=== PATIENT | male | born 1965 | race African-American/Black ===

== ENCOUNTER 2019-02-11 12:53 | Inpatient (IN) | payer SELFPAY ==
--- NOTE | 2019-02-11 13:37 | ER Document Report ---
ED Medical Screen (RME) - General Chief Complaint: Doesn't Feel Right Stated Complaint: ALTERED MENTAL STATE Time Seen by Provider: 02/11/19 13:31 Mode of Arrival: Wheelchair Information source: Patient Notes: Patient is a 53-year-old male presented to the emergency department with chief complaint of altered mental status and difficulty putting speech together. Patient reports that at approximately 1215 this afternoon he was typing on a keyboard at home when he felt like he could not put his thoughts together. He states he then went to the local [facility] with a friend of his where his friend reports he was acting altered and was unable to make full sentences. At the time of arrival to the hospital all symptoms have resolved. Patient has full and equal jet engine mechanic strength bilaterally. He is speaking in full and complete sentences and is alert and oriented x4. Due to patient's transient symptoms I will send patient for CT of his head to evaluate for stroke. Charge nurse was made aware and patient was upgraded to an PRINCESS 2. I have greeted and performed a rapid initial assessment of this patient. A comprehensive ED assessment and evaluation of the patient, analysis of test results and completion of the medical decision making process will be conducted by additional ED providers. I have specifically instructed the patient or family members with the patient to immediately return to any nursing staff should anything change in the patient's condition or with their chief complaint. This medical record was dictated with voice recognizing software. There may be grammatical, syntax errors that are unintended. - Related Data Allergies/Adverse Reactions: codeine Allergy (Verified 02/11/19 12:59) naproxen Allergy (Verified 02/11/19 12:59) Penicillins Allergy (Verified 02/11/19 12:59) Sulfa (Sulfonamide Antibiotics) Allergy (Verified 02/11/19 12:59) Physical Exam - Vital signs Vitals: Temp Pulse Resp BP Pulse Ox 98.1 F 80 16 147/88 H 97 02/11/19 13:09 02/11/19 13:09 02/11/19 13:02/11/19 13:09 02/11/19 13:09 Course - Vital Signs Vital signs: Temp Pulse Resp BP Pulse Ox 98.1 F 80 16 147/88 H 97 02/11/19 13:09 02/11/19 13:09 02/11/19 13:09 02/11/19 13:09 02/11/19 13:09
--- NOTE | 2019-02-11 13:58 | RADIOLOGY REPORT (SQ) ---
EXAM DESCRIPTION: CT HEAD WITHOUT COMPLETED DATE/TIME: 02/11/2019 1:45 pm REASON FOR STUDY: stroke COMPARISON: None. TECHNIQUE: Axial images acquired through the brain without intravenous contrast. Images reviewed wi th bone, brain and subdural windows. Additional sagittal and coronal reconstructions were generated. Images stored on PACS. All CT scanners at this facility use dose modulation, iterative reconstruction, and/or weight based d osing when appropriate to reduce radiation dose to as low as reasonably achievable (ALARA). [facility]: Dose Right [facility]: CareDose [facility]: Dose Right [facility]: Teradose 4D [facility]: Smart [place] RADIATION DOSE: CT Rad equipment meets quality standard of care and radiation dose reduction techniq ues were employed. CTDIvol: 53.2 mGy. DLP: 1044 mGy-cm. mGy. LIMITATIONS: None. FINDINGS: VENTRICLES: Normal size and contour. CEREBRUM: No masses. No hemorrhage. No midline shift. No evidence for acute infarction. Lacunar in farction of the right anterior limb of the internal capsule and adjacent alaniz radiata, age indeterm inate although likely chronic (series 2, image 21). CEREBELLUM: No masses. No hemorrhage. No alteration of density. No evidence for acute infarction. EXTRAAXIAL SPACES: No fluid collections. No masses. ORBITS AND GLOBE: No intra- or extraconal masses. Normal contour of globe without masses. CALVARIUM: No fracture. PARANASAL SINUSES: No fluid or mucosal thickening. SOFT TISSUES: No mass or hematoma. OTHER: No other significant finding. IMPRESSION: Lacunar infarction of the right anterior limb of the internal capsule and adjacent coron a radiata, age indeterminate although likely chronic (series 2, image 21). No CT evidence of acute s troke or hemorrhage. Consider MRI to evaluate for acute diffusion restricting infarction. EVIDENCE OF ACUTE STROKE: NO. COMMENT: Quality ID # [id number]: Final reports with documentation of one or more dose reduction techniques (e.g., Automated exposure control, adjustment of the mA and/or kV according to patient size, use of iterative reconstruction technique) TECHNICAL DOCUMENTATION: JOB ID: [id number] [employer]- All Rights Reserved Reading location - IP/workstation name: [email or web address]
[2019-02-11 14:14] LABS: ABSOLUTE EOSINOPHILS # (AUTO) 0.1 10^3/uL (0.0-0.6); ABSOLUTE LYMPHOCYTES (AUTO) 1.9 10^3/uL (0.5-4.7); ABSOLUTE MONOCYTES (AUTO) 0.4 10^3/uL (0.1-1.4); ABSOLUTE NEUT (AUTO) 1.8 10^3/uL (1.7-8.2); BASOPHILS % (AUTO) 0.7 % (0-2); EOSINOPHILS % (AUTO) 2.2 % (0-6); HEMATOCRIT 41.3 % (37.9-51.0); HEMOGLOBIN 14.1 g/dL (13.5-17.0); LYMPHOCYTES % (AUTO) 44.6 % (13-45); MEAN CORPUSCULAR HEMOGLOBIN 29.6 pg (27.0-33.4); MEAN CORPUSCULAR HGB CONC 34.1 g/dL (32.0-36.0); MEAN CORPUSCULAR VOLUME 87 fl (80-97); MONOCYTES % (AUTO) 9.7 % (3-13); PLATELET COUNT 207 10^3/uL (150-450); RED BLOOD COUNT 4.76 10^6/uL (4.35-5.55); SEGMENTED NEUTROPHILS % (AUTO) 42.8 % (42-78); TOTAL CELLS COUNTED % (AUTO) 100 %; WHITE BLOOD COUNT 4.3 10^3/uL (4.0-10.5)
--- NOTE | 2019-02-11 14:15 | RADIOLOGY REPORT (SQ) ---
EXAM DESCRIPTION: CHEST SINGLE VIEW COMPLETED DATE/TIME: 02/11/2019 1:43 pm REASON FOR STUDY: stroke work-up COMPARISON: None. EXAM PARAMETERS: NUMBER OF VIEWS: One view. TECHNIQUE: Single frontal radiographic view of the chest acquired. RADIATION DOSE: NA LIMITATIONS: None. FINDINGS: LUNGS AND PLEURA: No opacities, masses or pneumothorax. No pleural effusion. MEDIASTINUM AND HILAR STRUCTURES: No masses. Contour normal. HEART AND VASCULAR STRUCTURES: Heart normal in size. Normal vasculature. BONES: No acute findings. HARDWARE: None in the chest. OTHER: No other significant finding. IMPRESSION: NO ACUTE RADIOGRAPHIC FINDING IN THE CHEST. TECHNICAL DOCUMENTATION: JOB ID: [id number] [employer]- All Rights Reserved Reading location - IP/workstation name: [email or web address]
[2019-02-11 14:23] LABS: INTERNATIONAL RATION (INR) 0.93; PARTIAL THROMBOPLASTIN TIME 30.2 SEC (23.5-35.8); PROTHROMBIN TIME 12.4 SEC (11.4-15.4)
[2019-02-11] MEDS ORDERED: LORAZEPAM INJ 2 MG/1 ML VIAL IV ONE (15:01)
[2019-02-11] MEDS ORDERED: LORAZEPAM 1 MG TABLET PO ONE (15:01)
[2019-02-11 15:39] LABS: ALKALINE PHOSPHATASE 100 U/L (38-126); ANION GAP 6 (5-19); ASPARTATE AMINO TRANSFERASE 26 U/L (17-59); BILIRUBIN,DIRECT 0.3 mg/dL (0.0-0.4); BILIRUBIN,TOTAL 0.4 mg/dL (0.2-1.3); BLOOD UREA NITROGEN 22 mg/dL (7-20); CALCIUM 9.3 mg/dL (8.4-10.2); CARBON DIOXIDE 34 mmol/L (22-30); CHLORIDE 100 mmol/L (98-107); CREATINE KINASE 102 U/L (55-170); GLUCOSE 93 mg/dL (75-110); POTASSIUM 3.5 mmol/L (3.6-5.0); TOTAL PROTEIN 7.4 g/dL (6.3-8.2)
[2019-02-11 15:51] LABS: CREATINE KINASE MB 0.28 ng/mL (<4.55)
[2019-02-11 16:04] LABS: TROPONIN I < 0.012 ng/mL
--- NOTE | 2019-02-11 16:16 | ER Document Report ---
ED Neuro Symptoms/Deficit - General Chief Complaint: Doesn't Feel Right Stated Complaint: ALTERED MENTAL STATE Time Seen by Provider: 02/11/19 13:31 Primary Care Provider: OMAYRA FLEMING FNP [Primary Care Provider] - Follow up as needed Mode of Arrival: Wheelchair Notes: Patient is here because he is having difficulty speaking. About noon today, patient was at the computer and began to have difficulty writing words correctly. Letter seem to be mixed and he was not able to form words like normal. The symptoms worsened to the point that patient was unable to speak and could not be understood and they came to the emergency department. At the time of their arrival here, patient's symptoms had resolved completely and he was no longer having any of the problems that he had that brought him here. Has not had any problems with his vision. Denies any headache. No recent illness. No fevers. Patient ate a burger and frie just before l noon. Also, patient was stung by a wasp on his neck around noontime. Patient has a history of hypertension, high cholesterol. Patient is HIV positive. - Related Data Allergies/Adverse Reactions: codeine Allergy (Verified 02/11/19 12:59) naproxen Allergy (Verified 02/11/19 12:59) Penicillins Allergy (Verified 02/11/19 12:59) Sulfa (Sulfonamide Antibiotics) Allergy (Verified 02/11/19 12:59) Past Medical History - General Information source: Patient - Social History Smoking Status: Former Smoker Drug Abuse: Marijuana Family History: Reviewed & Not Pertinent Patient has suicidal ideation: No Patient has homicidal ideation: No - Past Medical History Cardiac Medical History: Reports: Hx Hypercholesterolemia, Hx Hypertension Neurological Medical History: Denies: Hx Cerebrovascular Accident Endocrine Medical History: Denies: Hx Diabetes Mellitus Type 1, Hx Diabetes Mellitus Type 2 Infectious Medical History: Reports: Hx HIV Review of Systems - Review of Systems Notes: REVIEW OF SYSTEMS: CONSTITUTIONAL : Denies fever. EENT: Denies eye, ear, nose or mouth or throat pain or other symptoms. CARDIOVASCULAR: Denies chest pain. RESPIRATORY: Denies cough, chest congestion, or shortness of breath. GASTROINTESTINAL: Denies abdominal pain or nausea, vomiting, or diarrhea. GENITOURINARY: Denies difficulty or painful urinating, urinary frequency, blood in urine. MUSCULOSKELETAL: Denies back or neck pain. Denies joint pain or swelling. SKIN: Denies rash or skin lesions. NEUROLOGICAL: See HPI. Has had some headache. Denies sensory loss or motor deficits. ALL OTHER SYSTEMS REVIEWED AND NEGATIVE. Physical Exam - Vital signs Vitals: Temp Pulse Resp BP Pulse Ox 98.1 F 80 16 147/88 H 97 02/11/19 13:09 02/11/19 13:09 02/11/19 13:09 02/11/19 13:09 02/11/19 13:09 Interpretation: Normal Notes: PHYSICAL EXAMINATION: GENERAL: Well-appearing, in no acute distress. Vital signs are all essentially normal. HEAD: Atraumatic, normocephalic. EYES: Pupils equal round and reactive to light, extraocular movements intact. ENT: oropharynx clear without exudates. Moist mucous membranes. NECK: Normal range of motion, supple. I do not hear any bruits over either carotid artery. LUNGS: Breath sounds clear and equal bilaterally. HEART: Regular rate and rhythm without murmurs. ABDOMEN: Soft, nontender. No guarding or rebound. No masses. BACK: No tenderness throughout entire back. EXTREMITIES: Normal range of motion without pain. NEUROLOGICAL: Normal speech, normal gait. Normal sensory, motor, and reflex exams. Awake, alert, and oriented x3. Cranial nerves normal. PSYCH: Normal mood, normal affect. SKIN: Warm, dry, no rashes. Course - Re-evaluation Re-evalutation: 02/11/19 17:17 Patient symptoms all resolved before he got to the emergency department. He has no symptoms at all at this time and feels back to normal. By this time, of getting the MRI performed, the patient is outside of any treatment window, even if indicated. However, because the patient's symptoms have completely resolved and not recurred, I do not think he meets criteria for administration of thrombolytics (TPA). Based on patient's CT and MRI results, he is being admitted to the [facility]. Aspirin therapy is started. - Vital Signs Vital signs: Temp Pulse Resp BP Pulse Ox 98.1 F 80 16 147/88 H 97 02/11/19 13:09 02/11/19 13:09 02/11/19 13:09 02/11/19 13:09 02/11/19 13:09 - Laboratory Result Diagrams: 02/11/19 14:05 02/11/19 15:00 Laboratory results interpreted by me: 02/11/19 02/11/19 14:05 15:00 RDW 16.0 H Potassium 3.5 L Carbon Dioxide 34 H BUN 22 H Creatinine 1.91 H Est GFR ( Amer) 45 L Est GFR (Non-Af Amer) 37 L - Diagnostic Test Radiology reviewed: Image reviewed, Reports reviewed - Patient's CT scan of the brain showed what looks like an old lacunar infarct and an MRI was recommended. The MRI shows couple of areas of small acute infarcts on the left side of the patient's brain, one in the frontal lobe and one in the occipital lobe. - EKG Interpretation by Pa EKG shows normal: Sinus rhythm Rate: Normal Rhythm: NSR Additional EKG results interpreted by me: 02/11/19 17:21 EKG shows no acute changes. Nonspecific ST changes present. Discharge - Discharge Clinical Impression: Stroke Condition: Stable Disposition: ADMITTED INPATIENT Admitting Provider: Yesy (Hospitalist) Unit Admitted: IMCU Referrals: OMAYRA FLEMING FNP [Primary Care Provider] - Follow up as needed
--- NOTE | 2019-02-11 16:54 | RADIOLOGY REPORT (SQ) ---
EXAM DESCRIPTION: MRI HEAD WITHOUT COMPLETED DATE/TIME: 02/11/2019 4:24 pm REASON FOR STUDY: Difficulty with speech, CT shows lacunar infarct COMPARISON: CT brain done earlier the same day. TECHNIQUE: Multiplanar imaging includes non-contrasted T1, T2, FLAIR, and Diffusion with ADC map seq uences. Images stored on PACS. LIMITATIONS: None. FINDINGS: ANATOMY: No anomalies. Normal vascular flow voids. Pituitary fossa normal. CSF SPACES: Normal in size and contour. No hemorrhage. CEREBRUM: A few high-signal intensity lesions scattered throughout the white matter on FLAIR imaging with distribution suggesting chronic micro-vascular ischemic change. Sulci and gyri normal in size a nd contour. No evidence of hemorrhage, mass or extraaxial fluid collection. POSTERIOR FOSSA: No signal alteration. No hemorrhage. No edema, masses or mass effect. Internal veronica tory canals, cerebello-pontine angles, mastoids normal. DIFFUSION: There acute infarcts in the left occipital lobe and high left posterior frontal lobe. ORBITS: No masses. Globes normal. PARANASAL SINUSES: No fluid levels. Mucosa normal. OTHER: No other significant finding. IMPRESSION: 1. Acute small infarct in the high posterior left frontal lobe. 2. Acute small infarcts in the left occipital lobe. 3. Mild small vessel ischemic changes. EVIDENCE OF ACUTE STROKE: YES. COMMENT: This report was called to BRIE NGUYEN MD at16:40 on 02/11/2019. TECHNICAL DOCUMENTATION: JOB ID: [id number] [employer]- All Rights Reserved Reading location - IP/workstation name: [email or web address]
[2019-02-11] MEDS ORDERED: ASPIRIN 81 MG TABLET, CHEWABLE PO ONE (17:09)
[2019-02-11] MEDS ORDERED: NORMAL SALINE 1000 ML 1,000 ML IV PRN (17:37)
[2019-02-11] MEDS ORDERED: HYDROCODONE/ACETAMINOPHEN 5-325 MG TABLET PO PRN (17:37)
[2019-02-11] MEDS ORDERED: DEXTROSE 50%-WATER 25 GM/50 ML DISP.SYRIN IV PRN ×2 (17:37)
[2019-02-11] MEDS ORDERED: GLUCAGON,HUMAN RECOMB 1 MG INJ SUBCUT PRN (17:37)
[2019-02-11] MEDS ORDERED: ONDANSETRON HCL INJ/PF 4 MG/2 ML SDV IV PRN (17:37)
[2019-02-11] MEDS ORDERED: DEXTROSE 40% GEL 15 GM TUBE PO PRN ×2 (17:37)
--- NOTE | 2019-02-11 17:51 | Progress Note Acknowledgement ---
Progress Note Acknowledgement Progess Note Acknowledgement: I, the undersigned member of the medical staff with appropriate privileges and with supervisory authority over [ Clarence Kendall ], a dependent practice allied health professional, acknowledge that I have reviewed the progress notes entered on this patient, and in my professional judgment believe that the assessment made and/or any care evidenced was appropriate
[2019-02-11] MEDS ORDERED: NORMAL SALINE 1000 ML 1,000 ML with POTASSIUM CHLORIDE 20 MEQ IV PRN ×2 (18:14)
--- NOTE | 2019-02-11 18:18 | PDOC H&P ---
History of Present Illness Admission Date/PCP: 02/11/19 17:29 YARITZA CHAVEZ Patient complains of: Stroke symptoms History of Present Illness: JACINTO STALLINGS is a 53 year old male with a known history of HIV who presents after becoming weak at home around 1230 today having trouble finding words apparently went to [facility] and then [place] at that point and had another episode of confusion trouble finding words. Patient presented to the ER was found to h ave a chronic as well as acute stroke on CT. Patient was outside the window for TPA at that time. Patient had no other treatment prior to arrival no true aggravating factors. Past Medical History Cardiac Medical History: Reports: Hyperlipidema, Hypertension Endocrine Medical History: Denies: Diabetes Mellitus Type 1, Diabetes Mellitus Type 2 Infectious Medical History: Reports: HIV Infectious History Note: HIV positive Past Surgical History Past Surgical History: Reports: None Social History Information Source: Patient Lives with: Friend Smoking Status: Former Smoker Frequency of Alcohol Use: None Hx Recreational Drug Use: No Drugs: None Hx Prescription Drug Abuse: No - Advance Directive Resuscitation Status: Full Code Family History Family History: None Parental Family History Reviewed: Yes Children Family History Reviewed: Yes Sibling(s) Family History Reviewed.: Yes Medication/Allergy Allergies/Adverse Reactions: codeine Allergy (Verified 02/11/19 12:59) naproxen Allergy (Verified 02/11/19 12:59) Penicillins Allergy (Verified 02/11/19 12:59) Sulfa (Sulfonamide Antibiotics) Allergy (Verified 02/11/19 12:59) Review of Systems Constitutional: ABSENT: chills, fever(s), headache(s), weight gain, weight loss Eyes: ABSENT: visual disturbances Ears: ABSENT: hearing changes Cardiovascular: ABSENT: chest pain, dyspnea on exertion, edema, orthropnea, palpitations Respiratory: ABSENT: cough, hemoptysis Gastrointestinal: ABSENT: abdominal pain, constipation, diarrhea, hematemesis, hematochezia, nausea, vomiting Genitourinary: ABSENT: dysuria, hematuria Musculoskeletal: ABSENT: joint swelling Integumentary: ABSENT: rash, wounds Neurological: PRESENT: abnormal gait, confusion, dizziness, focal weakness. ABSENT: syncope Psychiatric: ABSENT: anxiety, depression, homidical ideation, suicidal ideation Endocrine: ABSENT: cold intolerance, heat intolerance, polydipsia, polyuria Hematologic/Lymphatic: ABSENT: easy bleeding, easy bruising Physical Exam Vital Signs: Temp Pulse Resp BP Pulse Ox 98.1 F 80 16 147/88 H 97 02/11/19 13:09 02/11/19 13:09 02/11/19 13:09 02/11/19 13:09 02/11/19 13:09 Intake & Output 02/10/19 02/11/19 02/12/19 06:59 06:59 06:59 Weight 96.2 kg General appearance: PRESENT: no acute distress, well-developed, well-nourished Head exam: PRESENT: atraumatic, normocephalic Eye exam: PRESENT: conjunctiva pink, EOMI, PERRLA. ABSENT: scleral icterus Ear exam: PRESENT: normal external ear exam Mouth exam: PRESENT: moist, tongue midline Teeth exam: PRESENT: poor dentation Neck exam: ABSENT: carotid bruit, JVD, lymphadenopathy, thyromegaly Respiratory exam: PRESENT: clear to auscultation lainey. ABSENT: rales, rhonchi, wheezes Cardiovascular exam: PRESENT: RRR. ABSENT: diastolic murmur, rubs, systolic murmur Pulses: PRESENT: normal dorsalis pedis pul Vascular exam: PRESENT: normal capillary refill GI/Abdominal exam: PRESENT: normal bowel sounds, soft. ABSENT: distended, guarding, mass, organolmegaly, rebound, tenderness Rectal exam: PRESENT: deferred Extremities exam: PRESENT: full ROM. ABSENT: calf tenderness, clubbing, pedal edema Neurological exam: PRESENT: alert, awake, oriented to person, oriented to place, oriented to time, oriented to situation, CN II-XII grossly intact, aphasic. ABSENT: motor sensory deficit Psychiatric exam: PRESENT: appropriate affect, normal mood. ABSENT: homicidal ideation, suicidal ideation Skin exam: PRESENT: dry, intact, warm. ABSENT: cyanosis, rash Results Laboratory Results: 02/11/19 14:05 02/11/19 15:00 02/11/19 02/11/19 02/11/19 14:05 14:05 15:00 WBC 4.3 RBC 4.76 Hgb 14.1 Hct 41.3 MCV 87 MCH 29.6 MCHC 34.1 RDW 16.0 H Plt Count 207 Seg Neutrophils % 42.8 Lymphocytes % 44.6 Monocytes % 9.7 Eosinophils % 2.2 Basophils % 0.7 Absolute Neutrophils 1.8 Absolute Lymphocytes 1.9 Absolute Monocytes 0.4 Absolute Eosinophils 0.1 Absolute Basophils 0.0 Sodium Cancelled 140.0 Potassium Cancelled 3.5 L Chloride Cancelled 100 Carbon Dioxide Cancelled 34 H Anion Gap Cancelled 6 BUN Cancelled 22 H Creatinine Cancelled 1.91 H Est GFR ( Amer) Cancelled 45 L Est GFR (Non-Af Amer) Cancelled 37 L Glucose Cancelled 93 Calcium Cancelled 9.3 Total Bilirubin Cancelled 0.4 AST Cancelled 26 Alkaline Phosphatase Cancelled 100 Total Protein Cancelled 7.4 Albumin Cancelled 4.0 02/11/19 02/11/19 02/11/19 14:05 14:05 15:00 Creatine Kinase Cancelled 102 CK-MB (CK-2) Cancelled Troponin I Cancelled 02/11/19 15:00 Creatine Kinase CK-MB (CK-2) 0.28 Troponin I < 0.012 Impressions: Head CT 02/11/19 13:37 IMPRESSION: Lacunar infarction of the right anterior limb of the internal capsule and adjacent alaniz radiata, age indeterminate although likely chronic (series 2, image 21). No CT evidence of acute stroke or hemorrhage. Consider MRI to evaluate for acute diffusion restricting infarction. EVIDENCE OF ACUTE STROKE: NO. Chest X-Ray 02/11/19 13:38 IMPRESSION: NO ACUTE RADIOGRAPHIC FINDING IN THE CHEST. Head MRI 02/11/19 14:26 IMPRESSION: 1. Acute small infarct in the high posterior left frontal lobe. 2. Acute small infarcts in the left occipital lobe. 3. Mild small vessel ischemic changes. EVIDENCE OF ACUTE STROKE: YES. Assessment and Plan - Diagnosis (1) Stroke Is this a current diagnosis for this admission?: Yes Plan: February 11, 2019-admit to [facility]. Stroke protocol. Echocardiogram, bilateral carotid Dopplers, patient had MRI already. Patient be started on aspirin 325 mg continue daily. Atorvastatin 80 mg p.o. daily. Lipid panel. Stroke nurse to consult. Occupational therapy, physical therapy, speech therapy for swallow evaluation. After swallow evaluation will start patient on the diet at that time. Patient did have trouble swallowing aspirin with sips of water in my presence in the ER. He is also got some expressive aphasia at this time (2) HIV (human immunodeficiency virus infection) Is this a current diagnosis for this admission?: Yes Plan: 02/11/2019-patient will continue home antiviral medications and will be allowed to take his home doses. (3) Hypokalemia Is this a current diagnosis for this admission?: Yes Plan: February 11, 2019-as patient is having dysphasia I will place 20 mEq of potassium chloride normal saline run at 100 mL an hour. Repeat BMP in a.m. (4) Acute renal failure Is this a current diagnosis for this admission?: Yes Plan: February 11, 2019-at this time I have no previous creatinine to compare to. Creatinine today is 1.9. Will hydrate patient overnight with normal saline with 20 of KCl at 100 mL an hour repeat BMP in a.m. I suspect this could be chronic in nature secondary to patient's HIV status. - Time Time Spent with patient: 35 or more minutes - Inpatient Certification Based on my medical assessment, after consideration of the patient's comorbid ities, presenting symptoms, or acuity I expect that the services needed warrant INPATIENT care.: Yes I certify that my determination is in accordance with my understanding of Medicare's requirements for reasonable and necessary INPATIENT services [42 CFR 412.3e].: Yes Medical Necessity: Other - Stroke protocol, echocardiogram, carotid Doppler, IV fluids with potassium.
--- NOTE | 2019-02-11 18:19 | ADVANCED CARE ---
- Diagnosis (1) Stroke Diagnosis Current: Yes (2) HIV (human immunodeficiency virus infection) Diagnosis Current: Yes (3) Hypokalemia Diagnosis Current: Yes (4) Acute renal failure Diagnosis Current: Yes Attendance: Myself, patient and significant other Resuscitation Status: Full Code Discussion: Discussed plan of care with patient and significant other. Educated place patient on aspirin, obtain carotid Doppler, echocardiogram. Patient did fall out of the timeframe for TPA at this time. Patient's symptoms are resolving although still have aphasia and dysphasia. Patient will be seen by occupational, physical, and speech therapy. Patient will be allowed to take home medications for his HIV. Patient and significant other in agreement with plan of care. Care Planning Goals: 1-aspirin therapy 2-echocardiogram 3-carotid Doppler 4-physical therapy 5-Occupational Therapy 6-speech therapy Time Spent: 20 minutes
--- NOTE | 2019-02-11 18:26 | EKG REPORT ---
SEVERITY:- BORDERLINE ECG - SINUS RHYTHM PROBABLE LEFT ATRIAL ABNORMALITY LEFT AXIS DEVIATION BORDERLINE T ABNORMALITIES, LATERAL LEADS : Confirmed by: Artem Holloway MD 11-Feb-2019 18:25:32
[2019-02-11] MEDS ORDERED: POTASSI CL 20 MEQ/NS 1L 1000 ML IV PRN (20:03)
[2019-02-11] MEDS ORDERED: ATORVASTATIN CALCIUM 80 MG TABLET PO SCH (22:00)
--- NOTE | 2019-02-11 22:39 | RADIOLOGY REPORT (SQ) ---
EXAM DESCRIPTION: US CAROTID DOPPLER BILATERAL COMPLETED DATE/TME: 02/11/2019 16:11 Clinical History: CVA. Comparison: No prior studies are available for comparison. Technique: A carotid duplex ultrasonogram was performed by obtaining villareal-scale, color Doppler, and power Doppler images of the common, internal, and external carotid arteries bilaterally as well as the vertebral arteries. Findings: Duplex doppler sonogram of the common, internal, and external carotid arteries reveals no evidence of plaque formation or vessel wall thickening. All measured velocities are within normal limits. The right internal carotid artery peak systolic velocity is 80 cm/sec. The left internal carotid artery peak systolic velocity is 119 cm/sec. Ratio of internal to common carotid artery peak systolic velocities are also normal and measure 1.0 on the left and 1.5 on the right. Antegrade flow in the right vertebral artery. Left vertebral artery is not identified. Impression: 1. Less than 50% stenosis of the internal carotid arteries bilaterally by velocity criteria. 2. Antegrade flow in the right vertebral artery. The left vertebral artery is not visualized. Reference Table: Stenosis: 0-50% 50-69% >70% >95% Peak SV (cm/s): <125 125-230 >230 May be decreased ICA/CCA ratio: <2 >2-4 >4 Dampened CCA *Tono EG, Lupillo CB, Damaris GL, et al. Carotid artery stenosis: villareal-scale and Doppler US diagnosisSociety of Radiologists in Ultrasound Consensus Conference. Radiology 2003; 229:340-346.
[2019-02-11] MEDS: HEPARIN SOD (PORCINE) 5,000 UNIT/ML 1 ML VIAL SUBCUT SCH (23:22)
[2019-02-12] MEDS: HEPARIN SOD (PORCINE) 5,000 UNIT/ML 1 ML VIAL SUBCUT SCH (05:25)
[2019-02-12 07:46] VITALS: BP 145/84
[2019-02-12 08:11] LABS: HEMATOCRIT 39.5 % (37.9-51.0); HEMOGLOBIN 13.4 g/dL (13.5-17.0); MEAN CORPUSCULAR HEMOGLOBIN 29.3 pg (27.0-33.4); MEAN CORPUSCULAR VOLUME 86 fl (80-97); PLATELET COUNT 186 10^3/uL (150-450); RED BLOOD COUNT 4.59 10^6/uL (4.35-5.55); RED CELL DISTRIBUTION WIDTH 16.1 % (11.5-14.0); WHITE BLOOD COUNT 4.7 10^3/uL (4.0-10.5)
[2019-02-12 08:31] LABS: ANION GAP 6 (5-19); BLOOD UREA NITROGEN 16 mg/dL (7-20); CALCIUM 9.1 mg/dL (8.4-10.2); CARBON DIOXIDE 32 mmol/L (22-30); CHLORIDE 102 mmol/L (98-107); CHOLESTEROL 206.52 mg/dL (0-200); GLUCOSE 107 mg/dL (75-110); POTASSIUM 3.5 mmol/L (3.6-5.0); TRIGLYCERIDES 165 mg/dL (<150)
[2019-02-12 08:41] LABS: DIRECT LDL 127 mg/dL (<100)
--- NOTE | 2019-02-12 09:24 | PDOC DISCHARGE SUMMARY ---
General - Admit/Disc Date/PCP Admission Date/Primary Care Provider: 02/11/19 17:29 OMAYRA FLEMINGYARITZA Discharge Date: 02/12/19 - Discharge Diagnosis (1) Stroke Is this a current diagnosis for this admission?: Yes Summary: Several small stroke noted on the left. Frontal and occipital lobe. Complete resolution of symptoms today. Carotid studies showed no stenosis. We will add aspirin therapy daily to the patient's regimen. Because it was complete resolution of symptoms the patient does not need outpatient therapy. Pravastatin was increased to the maximum dose of 80 mg daily. Metoprolol was changed to metoprolol succinate 100 mg daily and the patient will continue to monitor his blood pressure at home to maintain good blood pressure control. (2) Acute renal failure Is this a current diagnosis for this admission?: Yes Summary: The patient's creatinine is improving. I have no baseline to compare this to. I did asked patient to stay well-hydrated. I will defer further management to his primary care provider. (3) HIV (human immunodeficiency virus infection) Is this a current diagnosis for this admission?: Yes Summary: Continue current medication regimen. (4) Hypokalemia Is this a current diagnosis for this admission?: Yes Summary: Likely related to the diuretic therapy. We will add low-dose potassium supplement. (5) Hypertension Is this a current diagnosis for this admission?: Yes Summary: I did change the patient's metoprolol tartrate to metoprolol succinate 100 mg daily. He will continue the amlodipine and chlorthalidone. - Additional Information Resuscitation Status: Full Code Discharge Diet: Cardiac Discharge Activity: Activity As Tolerated Prescriptions: Aspirin [Ecotrin 81 mg EC Tablet] 81 mg PO DAILY #1 pkg Metoprolol Succinate 100 mg PO DAILY #30 tab.er.24h Pravastatin Sodium 80 mg PO QHS 30 Days #30 tablet Home Medications: Abacavir/Dolutegravir/Lamivudi [Triumeq 600-50-300 mg Tablet] 1 each PO DAILY 02/11/19 Amlodipine Besylate [Norvasc 10 mg Tablet] 10 mg PO DAILY 02/11/19 Atovaquone [Mepron Susp 750 mg/5 ml Susp.packt] 10 ml PO DAILY 02/11/19 Cetirizine HCl [Zyrtec 10 mg Tablet] 10 mg PO DAILY 02/11/19 Chlorthalidone [Hygroton 25 mg Tablet] 25 mg PO DAILY 02/11/19 Escitalopram Oxalate [Lexapro 10 mg Tablet] 10 mg PO DAILY 02/11/19 Triamcinolone Acetonide [Aristocort 0.1% Cream] 1 applic TP BID 02/11/19 Aspirin [Ecotrin 81 mg EC Tablet] 81 mg PO DAILY #1 pkg 02/12/19 Metoprolol Succinate 100 mg PO DAILY #30 tab.er.24h 02/12/19 Potassium Chloride 10 meq PO DAILY 30 Days #30 capsule.er 02/12/19 Pravastatin Sodium 80 mg PO QHS 30 Days #30 tablet 02/12/19 Additional Information: Addition to treatment plan: Serum potassium was low. This is likely due to the diuretic. Continue on low- dose potassium supplement as ordered. History of Present Illness Patient complains of: Unable to convey thoughts into speech and discoordination with his fingers History of Present Illness: JACINTO STALLINGS is a 53 year old male who was in his baseline state yesterday. He got stung by wasp. He then noticed some aphasia And was unable to control his fingers. He was at a keyboard and felt that he was typing but was not. This concerned him and he proceeded to the emergency department. Evaluation revealed small strokes on the left side by MRI. He was given 325 mg of aspirin and referred to the hospital service for admission. Hospital Course Hospital Course: Complete resolution of symptoms overnight. See details above. Physical Exam Vital Signs: Temp Pulse Resp BP Pulse Ox 97.9 F 69 18 145/84 H 98 02/12/19 07:40 02/12/19 08:00 02/12/19 08:00 02/12/19 08:00 02/12/19 08:00 Intake & Output 02/11/19 02/12/19 02/13/19 06:59 06:59 06:59 Intake Total 200 Balance 200 Weight 91.7 kg General appearance: PRESENT: no acute distress, cooperative, well-developed Head exam: PRESENT: atraumatic, normocephalic Eye exam: PRESENT: conjunctiva pink. ABSENT: scleral icterus Ear exam: PRESENT: normal external ear exam Mouth exam: PRESENT: moist, tongue midline Respiratory exam: PRESENT: clear to auscultation lainey, symmetrical, unlabored. ABSENT: rales, rhonchi, tachypnea, wheezes Cardiovascular exam: PRESENT: RRR, +S1, +S2, systolic murmur - Subtle 1/6 murmur GI/Abdominal exam: PRESENT: normal bowel sounds, soft. ABSENT: distended, tenderness Rectal exam: PRESENT: deferred Gentrourinary exam: ABSENT: indwelling catheter Extremities exam: ABSENT: joint swelling, pedal edema Musculoskeletal exam: PRESENT: ambulatory, full ROM, normal inspection Neurological exam: PRESENT: alert, awake, oriented to person, oriented to place, oriented to time, oriented to situation, CN II-XII grossly intact. ABSENT: motor sensory deficit Psychiatric exam: PRESENT: appropriate affect, normal mood. ABSENT: agitated, anxious Focused psych exam: ABSENT: delusional, restlessness Results Laboratory Results: 02/12/19 07:45 02/12/19 07:45 02/11/19 02/11/19 02/11/19 14:05 14:05 15:00 WBC 4.3 RBC 4.76 Hgb 14.1 Hct 41.3 MCV 87 MCH 29.6 MCHC 34.1 RDW 16.0 H Plt Count 207 Seg Neutrophils % 42.8 Lymphocytes % 44.6 Monocytes % 9.7 Eosinophils % 2.2 Basophils % 0.7 Absolute Neutrophils 1.8 Absolute Lymphocytes 1.9 Absolute Monocytes 0.4 Absolute Eosinophils 0.1 Absolute Basophils 0.0 Sodium Cancelled 140.0 Potassium Cancelled 3.5 L Chloride Cancelled 100 Carbon Dioxide Cancelled 34 H Anion Gap Cancelled 6 BUN Cancelled 22 H Creatinine Cancelled 1.91 H Est GFR ( Amer) Cancelled 45 L Est GFR (Non-Af Amer) Cancelled 37 L Glucose Cancelled 93 Calcium Cancelled 9.3 Total Bilirubin Cancelled 0.4 AST Cancelled 26 Alkaline Phosphatase Cancelled 100 Total Protein Cancelled 7.4 Albumin Cancelled 4.0 Triglycerides Cholesterol LDL Cholesterol Direct VLDL Cholesterol HDL Cholesterol 02/12/19 02/12/19 07:45 07:45 WBC 4.7 RBC 4.59 Hgb 13.4 L Hct 39.5 MCV 86 MCH 29.3 MCHC 34.0 RDW 16.1 H Plt Count 186 Seg Neutrophils % Lymphocytes % Monocytes % Eosinophils % Basophils % Absolute Neutrophils Absolute Lymphocytes Absolute Monocytes Absolute Eosinophils Absolute Basophils Sodium 140.1 Potassium 3.5 L Chloride 102 Carbon Dioxide 32 H Anion Gap 6 BUN 16 Creatinine 1.80 H Est GFR ( Amer) 48 L Est GFR (Non-Af Amer) 40 L Glucose 107 Calcium 9.1 Total Bilirubin AST Alkaline Phosphatase Total Protein Albumin Triglycerides 165 H Cholesterol 206.52 H LDL Cholesterol Direct 127 H VLDL Cholesterol 33.0 H HDL Cholesterol 41 02/11/19 02/11/19 02/11/19 14:05 14:05 15:00 Creatine Kinase Cancelled 102 CK-MB (CK-2) Cancelled Troponin I Cancelled 02/11/19 15:00 Creatine Kinase CK-MB (CK-2) 0.28 Troponin I < 0.012 Impressions: Head CT 02/11/19 13:37 IMPRESSION: Lacunar infarction of the right anterior limb of the internal capsule and adjacent alaniz radiata, age indeterminate although likely chronic (series 2, image 21). No CT evidence of acute stroke or hemorrhage. Consider MRI to evaluate for acute diffusion restricting infarction. EVIDENCE OF ACUTE STROKE: NO. Chest X-Ray 02/11/19 13:38 IMPRESSION: NO ACUTE RADIOGRAPHIC FINDING IN THE CHEST. Head MRI 02/11/19 14:26 IMPRESSION: 1. Acute small infarct in the high posterior left frontal lobe. 2. Acute small infarcts in the left occipital lobe. 3. Mild small vessel ischemic changes. EVIDENCE OF ACUTE STROKE: YES. Qualifiers - * PATIENT BEING DISCHARGED WITH ANY OF THE FOLLOWING DIAGNOSIS: Stroke Stroke Pt being discharged on Anti-thrombolytic therapy?: Yes Stroke Pt being discharged on Anti-coagulation therapy?: No Reason(s) for not prescribing Anti-coagulation therapy:: Not indicated Stroke Pt being discharged on Statins?: Yes Acute Heart Failure - Is this a Heart Failure Patient?: No Plan Discharge Plan: Discharged home with follow-up with primary care provider. Time Spent: Greater than 30 Minutes
[2019-02-12] MEDS ORDERED: ABACAVIR PO SCH (10:00)
[2019-02-12] MEDS ORDERED: CETIRIZINE 10 MG TABLET PO SCH (10:00)
[2019-02-12] MEDS ORDERED: CHLORTHALIDONE 25 MG TABLET PO SCH (10:00)
[2019-02-12] MEDS ORDERED: [UNRECOGNIZED DRUG - OTHER] PO SCH (10:00)
[2019-02-12] MEDS ORDERED: ESCITALOPRAM OXALATE 10 MG TABLET PO SCH (10:00)
[2019-02-12] MEDS ORDERED: AMLODIPINE BESYLATE 10 MG TABLET PO SCH (10:00)
[2019-02-12] MEDS ORDERED: DOLUTEGRAVIR PO SCH (10:00)
[2019-02-12] MEDS ORDERED: (PENDING PHARMACY ID) (Pravastatin Sodium [Pravachol] 40 MG) PO SCH (10:00)
[2019-02-12] MEDS ORDERED: METOPROLOL TARTRATE 100 MG TABLET PO SCH (10:00)
[2019-02-12] MEDS ORDERED: ASPIRIN 325 MG TABLET, ENT COATED PO SCH (10:00)
[2019-02-12] MEDS ORDERED: TRIAMCINOLONE ACETONIDE 0.1% CREAM 15 GM TOP SCH (10:00)
[2019-02-12] MEDS ORDERED: LAMIVUDI PO SCH (10:00)
[2019-02-12] MEDS ORDERED: ATOVAQUONE PO SCH (10:00)
[2019-02-12] MEDS ORDERED: ATORVASTATIN CALCIUM 10 MG TABLET PO SCH (22:00)
--- NOTE | 2019-02-12 22:42 | XCELERA REPORT ---
[address] [address] Transthoracic Echocardiogram Report Name: JACINTO STALLINGS Age: 53 yrs Gender: Male : 1965 Patient Status: Inpatient Patient Location: [facility]^A Study Date: 02/11/2019 06:07 PM Height: 72 in Weight: 212 lb BSA: 2.2 m2 Procedure: A two-dimensional transthoracic echocardiogram with color flow and Doppler was performed. Study Quality: Fair. Reason For Study: CVA History: CVA. Ordering Physician: XIOMARA ALVAREZ Performed By: Afshan Mancia Interpretation Summary There is no obvious cardiac source of embolus noted on this transthoracic echocardiogram. Follow-up with a LUANA is suggested if cardiac source is still suspected. The left ventricle is normal in size. There is normal left ventricular wall thickness. The left ventricular ejection fraction is within normal limits. LV EF is > than 60% Doppler measurements suggest impaired left ventricular relaxation, which is associated with grade I/IV or mild diastolic dysfunction The left ventricular wall motion is normal. There is no thrombus. There is no ventricular septal defect visualized. The right ventricle is normal in size and function. The right atrium is normal. The left atrial size is normal. The interatrial septum is intact with no evidence for an atrial septal defect. There is no Doppler evidence for an interatrial shunt There is no evidence of mitral valve prolapse. There is no vegetation seen on the mitral valve. There is no mitral valve stenosis. There is a trace amount of mitral regurgitation There is no aortic valvular vegetation. There is no aortic valve stenosis There is no LVOT obstruction. No aortic regurgitation is present. There is no tricuspid stenosis. Upper normal RVSP to mild pulmonary hypertension.RVSP is 29 to 34 mm of Hg , with RA mean of 5 to 10. There is no pulmonic valvular stenosis. There is a trace amount of pulmonic regurgitation The aortic root is normal size. The inferior vena cava appeared normal and decreased > 50% with respiration (RAP 5-10 mmHg) There is no pericardial effusion. There is no obvious cardiac source of embolus noted on this transthoracic echocardiogram. Follow-up with a LUANA is suggested if cardiac source is still suspected MMode/2D Measurements & Calculations RVDd: 2.3 cm LVIDd: 5.3 cm FS: 35.0 % Ao root diam: 3.0 cm IVSd: 1.0 cm LVIDs: 3.5 cm EDV(Teich): Ao root area: LVPWd: 0.95 cm 138.0 ml 7.0 cm2 ESV(Teich): 49.9 mlLA dimension: 3.3 cm EF(Teich): 63.8 % LVLd ap4: 6.5 cm SV(MOD-sp4): EDV(MOD-sp4): 31.0 ml 45.0 ml LVLs ap4: 4.8 cm ESV(MOD-sp4): 14.0 ml EF(MOD-sp4): 68.9 % Doppler Measurements & Calculations MV E max kristal: MV P1/2t max kristal: Ao V2 max: LV V1 max P.9 cm/sec 55.0 cm/sec 140.1 cm/sec 4.4 mmHg MV A max kristal: MV P1/2t: 46.6 msec Ao max P.8 mmHg LV V1 max: 67.2 cm/sec MVA(P1/2t): 4.7 cm2 105.1 cm/sec MV E/A: 0.68 MV dec slope: 345.2 cm/sec2 MV dec time: 0.21 sec PA V2 max: TR max kristal: MV P1/2t-pr_phl: 87.6 cm/sec 245.7 cm/sec 46.6 msec PA max PG: TR max P.1 mmHg 3.1 mmHg Left Ventricle The left ventricle is normal in size. There is normal left ventricular wall thickness. The left ventricular ejection fraction is within normal limits. LV EF is > than 60%. Doppler measurements suggest impaired left ventricular relaxation, which is associated with grade I/IV or mild diastolic dysfunction. The left ventricular wall motion is normal. There is no thrombus. There is no ventricular septal defect visualized. Right Ventricle The right ventricle is normal in size and function. Atria The right atrium is normal. The left atrial size is normal. The interatrial septum is intact with no evidence for an atrial septal defect. There is no Doppler evidence for an interatrial shunt. Mitral Valve There is no evidence of mitral valve prolapse. There is no vegetation seen on the mitral valve. There is no mitral valve stenosis. There is a trace amount of mitral regurgitation. Aortic Valve There is no aortic valvular vegetation. There is no aortic valve stenosis. There is no LVOT obstruction. No aortic regurgitation is present. Tricuspid Valve There is no tricuspid stenosis. There is a trace amount of tricuspid regurgitation. Upper normal RVSP to mild pulmonary hypertension.RVSP is 29 to 34 mm of Hg , with RA mean of 5 to 10. Pulmonic Valve There is no pulmonic valvular stenosis. There is a trace amount of pulmonic regurgitation. Great Vessels The aortic root is normal size. The inferior vena cava appeared normal and decreased > 50% with respiration (RAP 5-10 mmHg). Effusions There is no pericardial effusion. : XIOMARA ALVAREZ > Beth Obregon
== END 2019-02-12 10:16 | disposition home or self-care (01) | DRG 65 ==
LOC: ER 12:53 → EH 17:29 → 3W 20:56
PROVIDERS: ADMIT Hospitalist; ATTEND Hospitalist
DX: I63.9 Cerebral infarction, unspecified (principal); N17.9 Acute kidney failure, unspecified; B20 Human immunodeficiency virus [HIV] disease; R47.01 Aphasia; E87.6 Hypokalemia; T50.2X5A Adverse effect of carbonic-anhydrase inhibitors, benzothiadiazides and other diuretics, initial encounter; E78.5 Hyperlipidemia, unspecified; I10 Essential (primary) hypertension; R26.9 Unspecified abnormalities of gait and mobility; R41.0 Disorientation, unspecified; R42 Dizziness and giddiness; R53.1 Weakness; R13.10 Dysphagia, unspecified; F12.10 Cannabis abuse, uncomplicated; Z79.82 Long term (current) use of aspirin; Z79.02 Long term (current) use of antithrombotics/antiplatelets; Z87.891 Personal history of nicotine dependence; Z88.6 Allergy status to analgesic agent; Z88.0 Allergy status to penicillin; Z88.2 Allergy status to sulfonamides
CPT/HCPCS: 36415; 70450; 70551; 71045; 80048; 80053; 80061; 82550; 82553; 84484; 85025; 85027; 85610; 85730; 93005; 93010; 93306; 93880; 96374; 99285; J1644; J2060; J3480; J3490